=== PATIENT | female | born 1955 | race Caucasian/White ===

== ENCOUNTER 2018-01-28 15:13 | Emergency (ER) | payer OTHER ==
[~2018-01-28] VITALS: Ht 157.5 cm; Wt 103.9 kg
== END 2018-01-28 19:42 | disposition home or self-care (01) ==
LOC: ER 15:13
DX: S83.421A Sprain of lateral collateral ligament of right knee, initial encounter (principal); X50.3XXA Overexertion from repetitive movements, initial encounter; Y93.89 Activity, other specified; Y92.89 Other specified places as the place of occurrence of the external cause; Y99.8 Other external cause status

== ENCOUNTER 2018-11-27 21:56 | Emergency (ER) | payer OTHER ==
[~2018-11-27] VITALS: Ht 157.5 cm; Wt 104.3 kg
[2018-11-28] MEDS ORDERED: KETO10TA2 PO (07:11)
[2018-11-28] MEDS ORDERED: CIPRO500 MG PO (07:12)
== END 2018-11-28 07:33 ==
LOC: ER 21:56
DX: N20.0 Calculus of kidney (principal); N20.1 Calculus of ureter; R10.32 Left lower quadrant pain; R11.11 Vomiting without nausea

== ENCOUNTER 2020-05-16 15:24 | Outpatient (CLI) | payer OTHER ==
[~2020-05-16 15:24] MED LIST: CIPRO500 MG PO; KETO10TA2 PO
== END 2020-05-16 15:32 | disposition home or self-care (01) ==
LOC: RAD 15:24
PROVIDERS: ATTEND Orthopaedic Surgery
DX: M25.562 Pain in left knee (principal)

== ENCOUNTER 2020-12-12 09:30 | Outpatient (CLI) | payer OTHER | END 2020-12-12 09:45 | disposition home or self-care (01) | LOC: PPH VACUNA 09:30 | PROVIDERS: ATTEND Emergency Medicine Pediatric Emergency Medicine | DX: Z23 Encounter for immunization (principal) ==

== ENCOUNTER 2021-03-12 08:14 | Outpatient (CLI) | payer OTHER | END 2021-03-12 08:32 | disposition home or self-care (01) | LOC: RAD 08:14 | PROVIDERS: ATTEND Physical Medicine & Rehabilitation Hospice and Palliative Medicine | DX: M25.511 Pain in right shoulder (principal); M75.21 Bicipital tendinitis, right shoulder; M75.51 Bursitis of right shoulder ==

== ENCOUNTER 2021-05-20 15:08 | Outpatient (CLI) | payer OTHER | END 2021-05-20 15:34 | disposition home or self-care (01) | LOC: RAD 15:08 | PROVIDERS: ATTEND Orthopaedic Surgery | DX: R07.89 Other chest pain (principal) ==

== ENCOUNTER 2021-05-22 10:10 | Outpatient (CLI) | payer OTHER | END 2021-05-22 10:54 | disposition home or self-care (01) | LOC: LAB 10:10 → EKG 10:10 → LAB 10:54 | PROVIDERS: ATTEND Internal Medicine Cardiovascular Disease | DX: I10 Essential (primary) hypertension (principal) ==

== ENCOUNTER 2021-11-20 12:46 | Outpatient (CLI) | payer OTHER | END 2021-11-20 12:52 | disposition home or self-care (01) | LOC: RAD 12:46 | PROVIDERS: ATTEND Physical Medicine & Rehabilitation | DX: M17.0 Bilateral primary osteoarthritis of knee (principal); W19.XXXA Unspecified fall, initial encounter ==

== ENCOUNTER 2022-01-01 08:47 | Outpatient (CLI) | payer OTHER | END 2022-01-01 08:57 | disposition home or self-care (01) | LOC: PPH VACUNA 08:47 | PROVIDERS: ATTEND Emergency Medicine Pediatric Emergency Medicine | DX: Z23 Encounter for immunization (principal) ==

== ENCOUNTER 2022-05-22 09:08 | Outpatient (CLI) | payer OTHER | END 2022-05-22 09:15 | disposition home or self-care (01) | LOC: RAD 09:08 | PROVIDERS: ATTEND Physical Medicine & Rehabilitation | DX: M25.512 Pain in left shoulder (principal) ==

== ENCOUNTER 2022-07-14 13:13 | Emergency (ER) | payer OTHER ==
[~2022-07-14] VITALS: Ht 157.5 cm; Wt 103.9 kg
== END 2022-07-14 15:53 | disposition home or self-care (01) ==
LOC: ER 13:13
DX: R05.9 Cough, unspecified (principal); E11.9 Type 2 diabetes mellitus without complications; Z88.0 Allergy status to penicillin; Z20.822 Contact with and (suspected) exposure to COVID-19

== ENCOUNTER 2022-08-19 09:07 | Outpatient (CLI) | payer OTHER | END 2022-08-19 09:15 | disposition home or self-care (01) | LOC: MAMO-SONO 09:07 | PROVIDERS: ATTEND General Practice | DX: R10.2 Pelvic and perineal pain (principal); N60.11 Diffuse cystic mastopathy of right breast; N60.12 Diffuse cystic mastopathy of left breast; Z12.31 Encounter for screening mammogram for malignant neoplasm of breast ==

== ENCOUNTER 2022-09-18 12:37 | Outpatient (CLI) | payer OTHER | END 2022-09-18 12:45 | disposition home or self-care (01) | LOC: SONOGRAMA 12:37 | PROVIDERS: ATTEND Surgery | DX: C50.812 Malignant neoplasm of overlapping sites of left female breast (principal) ==

== ENCOUNTER 2022-10-09 08:17 | Outpatient (CLI) | payer OTHER | END 2022-10-09 08:18 | disposition home or self-care (01) | LOC: LAB 08:17 | PROVIDERS: ATTEND Surgery | DX: I10 Essential (primary) hypertension (principal); Z20.822 Contact with and (suspected) exposure to COVID-19; D64.9 Anemia, unspecified; D68.9 Coagulation defect, unspecified; N39.0 Urinary tract infection, site not specified; E11.9 Type 2 diabetes mellitus without complications; E04.1 Nontoxic single thyroid nodule; E78.2 Mixed hyperlipidemia ==

== ENCOUNTER 2022-10-23 06:38 | Day surgery (SDC) | payer OTHER | END 2022-10-23 19:25 | disposition home or self-care (01) | LOC: CIR.AMB 06:38 | PROVIDERS: ATTEND Surgery | DX: C50.212 Malignant neoplasm of upper-inner quadrant of left female breast (principal); R59.0 Localized enlarged lymph nodes; Z88.0 Allergy status to penicillin; Z20.822 Contact with and (suspected) exposure to COVID-19 | CPT/HCPCS: 19301; 38525; 38792; 19281; A9541; L8699 ==

== ENCOUNTER → 2022-12-28 11:50 | Outpatient (CLI) | payer OTHER ==
[~2022-12-28 11:50] MED LIST changes: +DIABETIC TUSSI118 M3 PO; +MEDROLPACK PO; +PAXLOVID 300-11 EACH PO; +ZITHROMAX500 MG PO
== END | disposition home or self-care (01) ==
LOC: LAB 11:50
PROVIDERS: ATTEND Obstetrics & Gynecology
DX: Z03.818 Encounter for observation for suspected exposure to other biological agents ruled out (principal); Z88.0 Allergy status to penicillin

== ENCOUNTER 2022-12-28 13:19 | Emergency (ER) | payer OTHER ==
[~2022-12-28] VITALS: Ht 157.5 cm; Wt 108.9 kg
[~2022-12-28 13:19] MED LIST changes: -DIABETIC TUSSI118 M3 PO; -MEDROLPACK PO; -PAXLOVID 300-11 EACH PO; -ZITHROMAX500 MG PO
[2022-12-28] MEDS ORDERED: ZITHROMAX500 MG PO (16:38)
[2022-12-28] MEDS ORDERED: MEDROLPACK PO (16:38)
[2022-12-28] MEDS ORDERED: DIABETIC TUSSI118 M3 PO (16:38)
[2022-12-28] MEDS ORDERED: PAXLOVID 300-11 EACH PO (16:38)
== END 2022-12-28 16:43 | disposition home or self-care (01) ==
LOC: ER 13:20
DX: U07.1 COVID-19 (principal); Z88.0 Allergy status to penicillin; Z85.3 Personal history of malignant neoplasm of breast; G47.30 Sleep apnea, unspecified; K44.9 Diaphragmatic hernia without obstruction or gangrene
CPT/HCPCS: 96365; 99283; J3490

== ENCOUNTER 2023-01-30 11:42 | Emergency (ER) | payer OTHER ==
[~2023-01-30] VITALS: Ht 157.5 cm; Wt 106.6 kg
[~2023-01-30 11:42] MED LIST changes: +DIABETIC TUSSI118 M3 PO; +MEDROLPACK PO; +PAXLOVID 300-11 EACH PO; +ZITHROMAX500 MG PO
[2023-01-30 17:17] LABS: HEMATOCRIT 39.1 % (36.0-45.00); HEMOGLOBIN 12.5 g/dL (12.0-15.00); MEAN CORPUSCULAR HEMOGLOBIN 25.3 pg (27.00-32.0); PLATELET COUNT 303 K/uL (150-450); RED BLOOD COUNT 4.95 M/uL (4.00-6.00); RED CELL DISTRIBUTION WIDTH 16.4 % (11.5-14.5)
[2023-01-30 17:38] LABS: CALCIUM 9.2 mg/dL (8.5-10.1); CREATININE SERUM 0.76 mg/dL (0.55-1.02); GFR 76.14; POTASSIUM 3.7 mEq/L (3.5-5.1)
== END 2023-01-30 18:14 | disposition home or self-care (01) ==
LOC: ER 11:42
PROVIDERS: General Practice
DX: J06.9 Acute upper respiratory infection, unspecified (principal); R06.02 Shortness of breath; Z20.822 Contact with and (suspected) exposure to COVID-19

== ENCOUNTER 2023-02-25 06:50 | Day surgery (SDC) | payer OTHER | END 2023-02-25 15:00 | disposition home or self-care (01) | LOC: CIR.AMB 06:50 | PROVIDERS: ATTEND Obstetrics & Gynecology | DX: N84.0 Polyp of corpus uteri (principal); N95.0 Postmenopausal bleeding; R92.8 Other abnormal and inconclusive findings on diagnostic imaging of breast; Z12.4 Encounter for screening for malignant neoplasm of cervix; Z88.0 Allergy status to penicillin; Z20.822 Contact with and (suspected) exposure to COVID-19; N90.7 Vulvar cyst; E11.9 Type 2 diabetes mellitus without complications ==

== ENCOUNTER 2023-10-04 11:55 | Emergency (ER) | payer OTHER ==
[~2023-10-04] VITALS: Ht 157.5 cm; Wt 103.4 kg
[2023-10-04] MEDS ORDERED: COZAAR100 MG PO (12:54)
[2023-10-04] MEDS ORDERED: ANASTROZOLE1 MG PO (12:54)
[2023-10-04 15:05] LABS: HEMOGLOBIN 13.6 g/dL (12.0-15.00); MEAN CELL VOLUME 79.3 fL (80.00-100.00); MEAN CORPUSCULAR HEMOGLOBIN 26.3 pg (27.00-32.0); MEAN CORPUSCULAR HGB CONC 33.1 g/dl (32.0-36.0); PLATELET COUNT 319 K/uL (150-450); RED BLOOD COUNT 5.16 M/uL (4.00-6.00); RED CELL DISTRIBUTION WIDTH 15.5 % (11.5-14.5)
== END 2023-10-04 16:44 | disposition home or self-care (01) ==
LOC: ER 11:56
DX: B34.9 Viral infection, unspecified (principal); I10 Essential (primary) hypertension; Z20.822 Contact with and (suspected) exposure to COVID-19; Z88.0 Allergy status to penicillin

== ENCOUNTER 2024-05-10 10:30 | Outpatient (CLI) | payer OTHER ==
[~2024-05-10 10:30] MED LIST changes: +ANASTROZOLE1 MG PO; +COZAAR100 MG PO
== END 2024-05-10 10:31 | disposition home or self-care (01) ==
LOC: NUCLEAR 10:30
PROVIDERS: ATTEND Internal Medicine Cardiovascular Disease
DX: G30.9 Alzheimer's disease, unspecified (principal)
CPT/HCPCS: 78803; A9557